=== PATIENT | female | born 1945 | race Two or more races ===

== ENCOUNTER 2017-06-16 11:15 | Emergency (ER) | payer SELFPAY ==
[2017-06-16 11:20] VITALS: BP 148/63; PULSE 65; TEMP 98.5; BMI 27.4
--- NOTE | 2017-06-16 12:11 | PDOC ---
History of Present Illness - General Chief Complaint: Rash Stated Complaint: ALLERGIC RXN Time Seen by Provider: 06/16/17 11:29 History Source: Patient, Family - History of Present Illness Timing/Duration: reports: constant Past History - Past Medical History Allergies/Adverse Reactions: Allergies Allergy/AdvReac Type Severity Reaction Status Date / Time No Known Allergies Allergy Verified 06/16/17 11:17 Home Medications: Ambulatory Orders Ketoconazole 2% Cream [Nizoral 2% Cream -] 1 applic TP DAILY #1 cream 06/16/17 Other medical history: NONE - Surgical History Appendectomy: Yes - Suicide/Smoking/Psychosocial Hx Smoking History: Never smoked Information on smoking cessation initiated: No Hx Alcohol Use: No Drug/Substance Use Hx: No Review of Systems - Review of Systems Constitutional: No: Chills, Fever Integumentary: Yes: Pruritus, Rash *Physical Exam - Vital Signs Last Vital Signs Temp Pulse Resp BP Pulse Ox 98.5 F 65 18 148/63 100 06/16/17 11:18 06/16/17 11:18 06/16/17 11:18 06/16/17 11:18 06/16/17 11:18 - Physical Exam General Appearance: Yes: Appropriately Dressed. No: Apparent Distress HEENT: positive: Normal Voice Neck: positive: Supple Respiratory/Chest: negative: Respiratory Distress Integumentary: positive: Dry, Warm, Other (scaly patch to R mid back and groin b /l, c/w fungus, warty plaque w/ stuck on appearance to R buttocks c/w seborrheic keratosis) Neurologic: positive: Fully Oriented, Alert, Normal Mood/Affect Medical Decision Making - Medical Decision Making 06/16/17 12:25 72-year-old female, denies any past medical history, moved to [facility] from the [place] 3 months ago, does not currently have a primary care physician as insurance is pending as per family, here with rash. Family complaining of pruritic rash to right lower back and groin area 2-3 months. Also complaining of lesion to right buttocks that has been there "for a long time". Patient without any weakness, malaise, nausea, vomiting or unexplained weight loss. Has not seek medical treatment for rash until today See exam Tinea corporis ~4x3 oval patch w/ overlying scales to R mid back in skin fold w/ similar rash to b/l groin area -dc w/ topical antifungal -derm f/u Possible seborrheic keratosis Warty plaque w/ stuck on appearance to R buttocks -derm f/u 06/16/17 12:31 *DC/Admit/Observation/Transfer Diagnosis at time of Disposition: Rash and nonspecific skin eruption - Discharge Dispostion Disposition: HOME Condition at time of disposition: Good - Prescriptions Prescriptions: Ketoconazole 2% Cream [Nizoral 2% Cream -] 1 applic TP DAILY #1 cream - Referrals Referrals: Ailin Huerta MD [Staff Physician] - Waldo Ta MD [Staff Physician] - - Patient Instructions Printed Discharge Instructions: DI for Tinea Corporis, Seborrheic Keratosis Additional Instructions: Usted tiene varias erupciones en el examen de chiki, incluyendo hongos que aparecen erupcin en la espalda y jess de la evelia. Utilice la crema jodie se indica. Tambin tiene carmen erupcin en las nalgas derechas que parecen ser carmen lesin llamada queratosis seborreica, que suele ser carmen lesin benigna que puede ser tratada por un dermatlogo. Carmen vez que mata seguro est activado, por favor, el seguimiento con el Dr. Huerta de dermatologa. Seguimiento con el Dr. Ta, para atencin primaria Print Language: [id number]
== END 2017-06-16 12:26 | disposition home or self-care (01) ==
LOC: JERFT 11:15
DX: B35.4 Tinea corporis (principal); L82.1 Other seborrheic keratosis
CPT/HCPCS: 99281-25